=== PATIENT | female | born 1935 | race Caucasian/White ===

== ENCOUNTER 2020-05-19 02:53 | Emergency (ER) | payer MEDICARE, MEDICAID, SELFPAY ==
--- NOTE | 2020-05-19 | ECG_ITS ---
Test Reason : FALL Blood Pressure : / mmHG Vent. Rate : 080 BPM Atrial Rate : 079 BPM P-R Int : 000 ms QRS Dur : 060 ms QT Int : 360 ms P-R-T Axes : 000 011 047 degrees QTc Int : 415 ms Poor data quality Possible Normal sinus rhythm with Premature ventricular complexes Nonspecific T wave abnormality Abnormal ECG When compared with ECG of 05-FEB-2018 18:44, Nonspecific T wave abnormality, improved in Inferior leads Referred By: Oscar Cruz Electronically Signed By:VILMA TIPTON MD
[2020-05-19 03:05] VITALS: BP 113/71; PULSE 81; RESP 27; TEMP 36.6; O2SAT 95; BMI 19.2
--- NOTE | 2020-05-19 03:19 | ED.FALL ---
HPI - Fall General Chief Complaint: Fall Stated Complaint: fall Time Seen by Provider: 05/19/20 03:19 Source: RN notes reviewed Mode of arrival: EMS Limitations: altered mental status History of Present Illness HPI Narrative: Patient with history of dementia came from senior living after falling 2 times unwitnessed with right leg shortened with deformity no other significant injuries patient does have history of fall no vomiting no chest pain MD complaint: fall Onset (ago): minute(s) Fall from: standing Place fall occurred: senior living/[facility]NF Loss of consciousness: unsure Prolonged down time: no Related Data Allergies Allergy/AdvReac Type Severity Reaction Status Date / Time lorazepam [From ATIVAN] Allergy Unknown UNKNOWN Unverified 02/12/20 14:42 methylphenidate Allergy Unknown ? DUE TO Unverified 02/12/20 14:42 [Methylphenidate] KIDNEY TRANSPLANT NSAIDS (Non-Steroidal Allergy Unknown DUE TO Unverified 02/12/20 14:42 Anti-Inflamma KIDNEY [Nsaids] TRANSPLANT Penicillins Allergy Unknown ITCHING/JULIANE Unverified 02/12/20 14:42 H sirolimus [From Rapamune] Allergy Unknown BLOOD CLOTS Unverified 02/12/20 14:42 Mwrmucp-Fsr-Imt Reductase Allergy Unknown ELEVATED Unverified 02/12/20 14:42 Inhibitor CPK baclofen [Baclofen] AdvReac Unknown HALLUCINATI Unverified 02/12/20 14:42 ONS gabapentin [Gabapentin] AdvReac Unknown DIZZY/N/V/L Unverified 02/12/20 14:42 ETHARGY Gabapentin Allergy Unknown Uncoded 11/30/17 00:00 Lipitor Allergy Unknown Uncoded 11/30/17 00:00 Lyrica Allergy Unknown Uncoded 11/30/17 00:00 PCN Allergy Unknown Uncoded 11/30/17 00:00 SALICYLATES Allergy Unknown UNKNOWN Uncoded 02/12/20 14:42 Salsalate Allergy Unknown Uncoded 11/30/17 00:00 Vioxx Allergy Unknown Uncoded 11/30/17 00:00 From Prograf AdvReac Unknown TOXIC Uncoded 02/12/20 14:42 PARKINSONIAN SYMPTOMS Review of Systems Review of Systems: Yes Unobtainable due to mental status Neurologic: Reports confusion Psychiatric: Psychiatric: Reports confusion PMFSH Past Medical History Medical History Alzheimer disease Cardiomegaly Hypertension Multiple sclerosis Social History Social History Alcohol intake: unknown Smoking Status: Unknown if ever smoked Advance Directives: No Advance Directives Information Provided: No Physical Exam Vital Signs: Vital Signs: Last Vital Signs Temp 97.9 F 05/19/20 03:05 Pulse 84 05/19/20 03:47 Resp 26 H 05/19/20 03:47 BP 103/68 05/19/20 04:04 Pulse Ox 95 05/19/20 03:05 Body Mass Index 19.2 Const: General: cooperative, acute distress and confusion Orientation/consciousness: oriented to person and confusion Limitations: altered mental status (Dementia) HENMT: Head: Yes normal to inspection, Yes No palpable skull fracture present, Yes normocephalic and Yes atraumatic Ears: hearing grossly normal bilaterally General nose exam: Normal external nose present Face and sinus: Yes normal facial exam Mouth: Normal oral and palatal mucosa present Eyes: General: appearance normal, both eyes and all related structures Conjunctivae: conjunctivae normal Sclerae: sclerae normal Neck: Neck: Yes normal visual inspection, Yes full ROM, Yes no lymphadenopathy, Yes supple and No midline deformity Chest: Chest palpation & inspection: normal inspection of the chest and normal palpation of entire chest wall Resp: Effort & Inspection: normal respiratory effort Auscultation: clear to auscultation bilaterally, no crackles and no rales Cardio: Rate: regular rate Rhythm: regular rhythm Heart sounds: S1 normal heart sound present and S2 normal heart sound present GI: Inspection: Yes normal to inspection Palpation (GI): Soft to palpation and nontender : General: Yes no CVA tenderness Back/Spine/Pelvis: Back: no CVA tenderness Thoracic/Lumbar Spine: thoracic and lumbar spine normal to inspection Skin: General skin exam: no rashes or lesions noted Neuro: General: oriented to person, moves all extremities and confusion Extrem: Upper/lower leg/hip images: 1. Tenderness at greater trochanteric area slightly shortened and internally rotated MDM - Fall MDM Narrative Medical decision making narrative: Patient from senior living nonambulatory with history of right prosthetic hip came after the unwitnessed fall head CT and C-spine CT is negative x-ray of the pelvis showed the lesser trochanteric fracture with intact process is. Case discussed with ortho no surgical intervention at this time patient nonambulatory as such anyway, repeat x-ray in 2 weeks and follow up as outpatient. Patient WBC counts also elevated 16.2 will get the Ua checked Medical Records Attestation: I reviewed the patient's medical records. Lab Data Attestation: I reviewed the patient's lab results. Result diagrams: 05/19/20 03:26 05/19/20 03:25 Labs: Lab Results 05/19/20 05/19/20 05/19/20 Range/Units 03:25 03:25 03:26 WBC 16.2 H (4.8-10.8) X10*3/uL RBC 4.21 (4.20-5.50) X10*6/uL Hgb 11.3 L (12.0-16.0) g/dl Hct 37.6 (37-47) % MCV 89.3 (80-98) fL MCH 26.8 L (27.0-33.0) pg MCHC 30.1 L (31.0-35.0) g/dl RDW 13.3 (11.0-16.0) % Plt Count 177 (160-400) X10*3/uL MPV 10.9 (9.4-12.3) fL Immature Gran % (Auto) 0.6 H (0.0-0.4) % Neut % (Auto) 82.4 H (45-73) % Lymph % (Auto) 9.0 L (20-40) % Pitt % (Auto) 7.8 (2-11) % Eos % (Auto) 0.1 (0-4) % Baso % (Auto) 0.1 (0-2) % Lymph # (Auto) 1.5 (1.2-4.9) X10*3/uL Pitt # (Auto) 1.3 H (0.1-1.2) X10*3/uL Eos # (Auto) 0.0 (0.0-0.4) X10*3/uL Baso # (Auto) 0.0 (0.0-0.2) X10*3/uL Abs Immat Gran (auto) 0.09 H (0.00-0.03) X10*3/uL Absolute Neuts (auto) 13.4 H (2.0-8.3) X10*3/uL Absolute Nucleated RBC 0.000 (0.0-0.012) X10*3/uL Nucleated RBC % (auto) 0.0 (0.0-0.2) /100WBC PT (10.8-13.0) SEC INR (0.9-1.1) APTT (24.1-38.0) SEC Sodium 141 (135-145) mmol/L Potassium 4.3 (3.3-5.1) mmol/l Chloride 107 (96-108) mmol/L Carbon Dioxide 23 (22-29) mmol/L Anion Gap 15 (12-20) BUN 20 H (9-16) mg/dL Creatinine 0.62 (0.5-1.4) mg/dL Estim Creat Clear Calc 55.2 Estimated GFR > 60 Random Glucose 150 H (60-115) mg/dL Calcium 9.0 (8.4-10.2) mg/dL Total Bilirubin 0.7 (0.0-1.0) mg/dL AST 13 (5-31) U/L ALT 10 (0-31) U/L Alkaline Phosphatase 69 (39-117) U/L Troponin I High Sens 7.9 (<3.5-17.0) ng/L Total Protein 6.3 L (6.5-8.0) g/dL Albumin 3.9 (3.5-5.0) g/dL Coronavirus (PCR) (Negative) Influenza Type A (PCR) (Negative) Influenza Type B (PCR) (Negative) RSV RNA Qual (PCR) (Negative) 05/19/20 05/19/20 Range/Units 03:26 04:02 WBC (4.8-10.8) X10*3/uL RBC (4.20-5.50) X10*6/uL Hgb (12.0-16.0) g/dl Hct (37-47) % MCV (80-98) fL MCH (27.0-33.0) pg MCHC (31.0-35.0) g/dl RDW (11.0-16.0) % Plt Count (160-400) X10*3/uL MPV (9.4-12.3) fL Immature Gran % (Auto) (0.0-0.4) % Neut % (Auto) (45-73) % Lymph % (Auto) (20-40) % Pitt % (Auto) (2-11) % Eos % (Auto) (0-4) % Baso % (Auto) (0-2) % Lymph # (Auto) (1.2-4.9) X10*3/uL Pitt # (Auto) (0.1-1.2) X10*3/uL Eos # (Auto) (0.0-0.4) X10*3/uL Baso # (Auto) (0.0-0.2) X10*3/uL Abs Immat Gran (auto) (0.00-0.03) X10*3/uL Absolute Neuts (auto) (2.0-8.3) X10*3/uL Absolute Nucleated RBC (0.0-0.012) X10*3/uL Nucleated RBC % (auto) (0.0-0.2) /100WBC PT 12.0 (10.8-13.0) SEC INR 1.0 (0.9-1.1) APTT 41.9 H (24.1-38.0) SEC Sodium (135-145) mmol/L Potassium (3.3-5.1) mmol/l Chloride (96-108) mmol/L Carbon Dioxide (22-29) mmol/L Anion Gap (12-20) BUN (9-16) mg/dL Creatinine (0.5-1.4) mg/dL Estim Creat Clear Calc Estimated GFR Random Glucose (60-115) mg/dL Calcium (8.4-10.2) mg/dL Total Bilirubin (0.0-1.0) mg/dL AST (5-31) U/L ALT (0-31) U/L Alkaline Phosphatase (39-117) U/L Troponin I High Sens (<3.5-17.0) ng/L Total Protein (6.5-8.0) g/dL Albumin (3.5-5.0) g/dL Coronavirus (PCR) NEGATIVE (Negative) Influenza Type A (PCR) NEGATIVE (Negative) Influenza Type B (PCR) NEGATIVE (Negative) RSV RNA Qual (PCR) NEGATIVE (Negative) ECG Data Attestation: I personally reviewed and interpreted this ECG as follows: Interpretation: Normal sinus rhythm with heart rate of 80 very poor baseline no acute ischemia Discharge Plan Discharge Clinical Impression: Closed hip fracture Qualifiers: Encounter type: initial encounter Laterality: right Qualified Code(s): S72.001A - Fracture of unspecified part of neck of right femur, initial encounter for closed fracture Patient Disposition: [facility] SN[facility]
--- NOTE | 2020-05-19 03:23 | XR_ITS ---
EXAMINATIONS: PELVIS 1 VIEW AND RIGHT HIP 2 VIEWS CLINICAL INFORMATION: Pain after fall. COMPARISON: 10/26/2017. TECHNIQUE: A supine view of the pelvis is provided. AP neutral and frog-leg lateral views of the right hip are provided. FINDINGS: The right femoral prosthesis is intact. There is new demonstration of a fracture about the lesser trochanter. No additional fractures are identified. There are diffuse vascular calcifications. XR/XR hip RT w [id number] IMPRESSION: Intact right hip prosthesis with new demonstration of a mildly displaced lesser trochanter fracture.
--- NOTE | 2020-05-19 03:23 | CT_ITS ---
EXAMINATIONS: CT HEAD WITHOUT CONTRAST AND CT CERVICAL SPINE WITHOUT CONTRAST CLINICAL INFORMATION: Fall. Trauma. COMPARISON: 02/05/2018. TECHNIQUE: Contiguous helical images of the brain were obtained without IV contrast. Contiguous helical images of the cervical spine were obtained without IV contrast. Multiplanar reconstructions were performed. DLP: 846 mGy-cm. FINDINGS: There are no pathologic extra-axial fluid collections. The lateral, third, fourth ventricles are prominent, though stable, age-appropriate and concordant with the appearance of the sulci. There is no evidence for acute intraparenchymal hemorrhage or infarct. There is periventricular low-attenuation indicative of small vessel disease. There is neither mass nor mass effect. There is no shift of midline structures. The paranasal sinuses and mastoid air cells are clear. There are no osseous lesions. The cervical vertebra are in normal alignment. There is multifocal disc height loss within the mid and lower cervical spine. Vertebral body heights are well-preserved. There is anterior osteophyte formation. There are no acute cervical spine fractures. There is an old healed posterior right first rib fracture. There is no prevertebral soft tissue swelling. There is no cervical lymphadenopathy. The visualized lung apices are clear. CT/CT cervical spine wo con IMPRESSION: No evidence for acute intracranial injury. Stable age-appropriate appearance of the brain. No evidence for acute injury to the cervical spine. Moderate degenerative change throughout the cervical spine. Old healed right first rib fracture. Automated exposure control (Care Dose) Adjustment of the mA and/or kv according to patient size (this includes techniques or standardized protocols for targeted exams where dose is matched to indication / reason for exam; i.e. extremities or head).
[2020-05-19] MEDS: Morphine Sulfate 4 MG/ML CARTRIDGE 2 MG IVPUSH (03:29)
[2020-05-19 03:30] LABS: Basophils Percent Auto 0.1 % (0-2); Eosinophils Percent Auto 0.1 % (0-4); Hematocrit 37.6 % (37-47); Hemoglobin 11.3 g/dl (12.0-16.0); Imm Gran Abs Auto 0.09 X10*3/uL (0.00-0.03); Imm Gran Pct Auto 0.6 % (0.0-0.4); Lymphocytes Absolute Auto 1.5 X10*3/uL (1.2-4.9); MANUAL DIFF FLAG NO; Mean Corpuscular HGB Conc 30.1 g/dl (31.0-35.0); Mean Corpuscular Hemoglobin 26.8 pg (27.0-33.0); Mean Corpuscular Volume 89.3 fL (80-98); Mean Platelet Volume 10.9 fL (9.4-12.3); Monocytes Absolute Auto 1.3 X10*3/uL (0.1-1.2); Monocytes Percent Auto 7.8 % (2-11); Neutrophils Absolute Auto 13.4 X10*3/uL (2.0-8.3); Neutrophils Percent Auto 82.4 % (45-73); Platelet Count 177 X10*3/uL (160-400); Red Blood Count 4.21 X10*6/uL (4.20-5.50); Red Cell Distribution Width 13.3 % (11.0-16.0); White Blood Count 16.2 X10*3/uL (4.8-10.8)
[2020-05-19] MEDS: ondansetron HCL 4 MG/2 ML VIAL IVPUSH (03:30)
[2020-05-19 03:38] LABS: Partial Thromboplastin Time 41.9 SEC (24.1-38.0)
[2020-05-19 03:47] VITALS: BP 91/60; PULSE 84; RESP 26
[2020-05-19 04:04] VITALS: BP 103/68
[2020-05-19 04:11] LABS: Alanine Aminotransferase 10 U/L (0-31); Albumin Level 3.9 g/dL (3.5-5.0); Alkaline Phosphatase 69 U/L (39-117); Anion Gap 15 (12-20); Aspartate Amino Transferase 13 U/L (5-31); Bilirubin Total 0.7 mg/dL (0.0-1.0); Blood Urea Nitrogen 20 mg/dL (9-16); Carbon Dioxide 23 mmol/L (22-29); Chloride 107 mmol/L (96-108); Creatinine Clr Calc Pharmacy 55.2; Estimated Glomerular Filt Rate > 60; Glucose Random 150 mg/dL (60-115); Potassium 4.3 mmol/l (3.3-5.1); Sodium 141 mmol/L (135-145); Total Protein 6.3 g/dL (6.5-8.0)
[2020-05-19 04:17] LABS: Troponin-I High Sensitivity 7.9 ng/L (<3.5-17.0)
[2020-05-19 04:45] LABS: Influenza A PCR NEGATIVE (Negative); Influenza B PCR NEGATIVE (Negative); Resp Syncy Virus RNA Qual PCR NEGATIVE (Negative); SARS COV2 PCR INHOUSE NEGATIVE (Negative)
--- NOTE | 2020-05-19 07:13 | PC.NURSE ---
REPORT FROM ZACK. PT WITH FX HIP. NON WEIGHT BEARING AT BASELINE. SLEEPING AT THIS TIME. AWAITING DISPOSITION AFTER ORTHO CONSULT,
[2020-05-19 08:41] LABS: Lactic Acid 0.7 mmol/L (0.5-2.0)
[2020-05-19 08:57] VITALS: BP 115/56; PULSE 81; O2SAT 95
--- NOTE | 2020-05-19 08:58 | PC.NURSE ---
ARIAS PLACED BY DR COBB AFTER SEVERAL ATTEMPTS BY [employer]. ADDITIONAL LABS DRAWN PT HAS ELEVATED WBC. IVF AND ROCEPHIN PER ORDERS
[2020-05-19] MEDS: cefTRIAXone sodium 1 GM in 0.9 % Sodium Chloride 50 ML IV (09:00)
[2020-05-19] MEDS: 0.9 % Sodium Chloride 500 ML IV (09:00)
[2020-05-19 09:10] LABS: Glucose Urine UA NEG (NEG); Leukocyte Esterase Urine NEG (NEG); Nitrite Urine NEG (NEG); PH 5.5 (5.0-8.0); Specific Gravity - Urine >= 1.030 (1.005-1.025); Urine Blood TRACE (NEG); Urine Ketones NEG (NEG); Urine Protein NEG (NEG-TRACE)
[2020-05-19 09:12] LABS: Appearance Urine CLEAR; Color Urine YELLOW
[2020-05-19 09:19] LABS: Squamous Epithelial Cell Urine TRACE /LPF; WBC Urine 0-2 /HPF (0-4)
--- NOTE | 2020-05-19 10:11 | PC.NURSE ---
REPORT TO [facility] STAFF. PT WILL RETURN WITHOUT FURTHER INTERVENTIONS. PER [facility] - PLEASE REMOVE ARIAS.
== END 2020-05-19 11:03 | disposition skilled nursing facility (03) ==
PROVIDERS: Emergency Medicine; Emergency Provider Internal Medicine
DX: S72.121A Displaced fracture of lesser trochanter of right femur, initial encounter for closed fracture (principal); W19.XXXA Unspecified fall, initial encounter; Z20.828 Contact with and (suspected) exposure to other viral communicable diseases; Z91.81 History of falling; I10 Essential (primary) hypertension; G35 Multiple sclerosis; Y93.9 Activity, unspecified; Y92.129 Unspecified place in nursing home as the place of occurrence of the external cause; Y99.9 Unspecified external cause status
CPT/HCPCS: 0241U; 36415; 70450; 72125; 73502; 80053; 81001; 81003; 83605; 84484; 85025; 85610; 85730; 87040; 93005; 96365; 96375; 99284; 99285; J0696; J2270; J2405